=== PATIENT | female | born 1960 | race Caucasian/White ===

== ENCOUNTER 2022-10-26 10:58 | Inpatient (IN) | payer SELFPAY ==
[2022-10-26 12:18] LABS: #Basophils 0.1 thou/uL (0.0-0.2); #Eosinphils 0.1 thou/uL (0.0-0.7); #Lymphocytes 1.3 thou/uL (1.20-3.40); #Monocytes 0.9 thou/uL (0.11-0.59); #Neutrophils 10.6 thou/uL (1.40-6.50); %Basophils 0.6 % (0.0-1.0); %Eosinophils 0.9 % (0.0-10.0); %Lymphocytes 10.2 % (21.0-51.0); %Monocytes 6.9 % (0.0-10.0); %Neutrophils 81.4 % (42.0-75.0); Hemoglobin 14.9 g/dL (12.0-16.0); Mean Corpuscular HGB CONC 34.9 g/dL (32.0-36.0); Mean Corpuscular Hemoglobin 32.2 pg (27.0-31.0); Mean Corpuscular Volume 92.1 fl (78.0-98.0); Mean Platelet Volume 9.4 fL (7.4-10.4); Platelet Count 172 10x3/uL (130-400); RBC Distribution Width 11.9 % (11.5-14.5); Red Blood Cell (RBC) Count 4.63 mill/uL (4.20-5.40); White Blood Cell (WBC) Count 13.1 10x3/uL (4.8-10.8)
[2022-10-26 12:49] LABS: ALT (SGPT) 22 U/L (8-55); AST (SGOT) 22 U/L (5-34); Albumin 4.5 g/dL (3.4-4.8); Alkaline Phosphatase 80 U/L (40-110); Anion Gap 19 mmol/L (10-20); BUN (Urea Nitrogen) 15 mg/dL (9.8-20.1); Bilirubin, Total 0.6 mg/dL (0.2-1.2); Calc. Creatinine Clearance 0 mL/min (70-130); Calcium 9.9 mg/dL (7.8-10.44); Carbon Dioxide 18 mmol/L (23-31); Chloride 104 mmol/L (98-107); Estimated GFR 61; Globulin 3.3 g/dL (2.4-3.5); Glucose 97 mg/dL (80-115); Potassium 3.1 mmol/L (3.5-5.1); Protein, Total 7.8 g/dL (5.8-8.1); Sodium 138 mmol/L (136-145)
[2022-10-26] MEDS ORDERED: Ketamine In 0.9 % NaCl 50 MG/5 ML SYRINGE ONE ×2 (12:53→13:42)
[2022-10-26] MEDS ORDERED: PROPOFOL 0 ML ONE (12:53)
[2022-10-26] MEDS ORDERED: PROPOFOL 20 ML ONE (13:42)
[2022-10-26] MEDS ORDERED: fentaNYL 50 mcg/mL 1 mL Vial ONE (15:02)
[2022-10-26] MEDS ORDERED: Dextrose 50% Abboject 50 ML SYRINGE SLOW IVP PRN (15:50)
[2022-10-26] MEDS ORDERED: hydrALAZINE 20 MG/ML VIAL SLOW IVP PRN (15:50)
[2022-10-26] MEDS ORDERED: Ondansetron PF 4 MG/2 ML Vial IVP PRN (15:50)
[2022-10-26] MEDS ORDERED: TETANUS, DIPHTHERIA TOX,ADULT (TDVAX) 0.5 ML VIAL IM ONE (15:50)
[2022-10-26] MEDS ORDERED: Morphine 2 MG/ML VIAL SLOW IVP PRN (15:50)
[2022-10-26] MEDS ORDERED: Dextrose 5% in Water 1,000 ML IV PRN (15:50)
[2022-10-26] MEDS ORDERED: traMADol HCl 50 MG TAB PO PRN ×2 (15:53)
[2022-10-26] MEDS ORDERED: Ibuprofen 200 MG TAB PO PRN (16:17)
[2022-10-26 17:20] LABS: Phosphorus 2.1 mg/dL (2.3-4.7)
[2022-10-26] MEDS ORDERED: Potassium Phosphate 30 MMOL in Sodium Chloride 0.9% 250 ML 250 ML IVPB SCH (17:30)
[2022-10-26] MEDS: Acetaminophen 500 MG TAB PO SCH ×2 (17:49→18:22)
[2022-10-26 18:26] VITALS: BMI 29.5
[2022-10-26] MEDS: Famotidine 20 MG TAB PO SCH (20:39)
[2022-10-26] MEDS: Cyclobenzaprine 10 MG TAB PO PRN (20:39)
[2022-10-26] MEDS: Gabapentin 100 MG CAP PO SCH (20:39)
[2022-10-26] MEDS: Senokot S 8.6-50 MG TAB PO SCH (20:39)
[2022-10-27] MEDS: Acetaminophen 500 MG TAB PO SCH ×4 (00:52→18:04)
[2022-10-27 08:49] LABS: Anion Gap 13 mmol/L (10-20); BUN (Urea Nitrogen) 15 mg/dL (9.8-20.1); Calc. Creatinine Clearance 68 mL/min (70-130); Calcium 8.6 mg/dL (7.8-10.44); Carbon Dioxide 20 mmol/L (23-31); Chloride 109 mmol/L (98-107); Estimated GFR 59; Glucose 119 mg/dL (80-115); Phosphorus 4.9 mg/dL (2.3-4.7); Potassium 3.4 mmol/L (3.5-5.1); Sodium 139 mmol/L (136-145)
[2022-10-27] MEDS: Gabapentin 100 MG CAP PO SCH ×3 (08:55→21:10)
[2022-10-27] MEDS: Escitalopram Oxalate 10 mg Tablet PO SCH (08:55)
[2022-10-27] MEDS: Senokot S 8.6-50 MG TAB PO SCH ×2 (08:56→21:08)
[2022-10-27] MEDS: Famotidine 20 MG TAB PO SCH ×2 (08:56→21:10)
[2022-10-27] MEDS: Polyethylene Glycol 3350 17 GM Packet PO SCH (08:56)
[2022-10-27] MEDS ORDERED: Potassium Chloride 20 MEQ TAB PO SCH (10:00)
[2022-10-28] MEDS: Acetaminophen 500 MG TAB PO SCH ×4 (00:01→17:37)
[2022-10-28] MEDS: Famotidine 20 MG TAB PO SCH ×2 (09:57→20:38)
[2022-10-28] MEDS: Escitalopram Oxalate 10 mg Tablet PO SCH (09:57)
[2022-10-28] MEDS: Gabapentin 100 MG CAP PO SCH ×3 (09:57→20:38)
[2022-10-28] MEDS: Polyethylene Glycol 3350 17 GM Packet PO SCH (10:01)
[2022-10-28] MEDS: Senokot S 8.6-50 MG TAB PO SCH ×2 (10:02→20:46)
[2022-10-28] MEDS: Cyclobenzaprine 10 MG TAB PO PRN (20:38)
[2022-10-29] MEDS: Acetaminophen 500 MG TAB PO SCH ×3 (01:58→11:47)
[2022-10-29 07:55] VITALS: TEMP 98.1
[2022-10-29] MEDS: Escitalopram Oxalate 10 mg Tablet PO SCH (08:02)
[2022-10-29] MEDS: Famotidine 20 MG TAB PO SCH (08:02)
[2022-10-29] MEDS: Gabapentin 100 MG CAP PO SCH (08:03)
[2022-10-29] MEDS: Polyethylene Glycol 3350 17 GM Packet PO SCH (09:41)
[2022-10-29] MEDS: Senokot S 8.6-50 MG TAB PO SCH (09:41)
[2022-10-29 11:44] VITALS: BP 119/80
== END 2022-10-29 15:20 | disposition home or self-care (01) | DRG 563 ==
LOC: ERS 10:58 → SURG B 15:21 → OBSVTOIN 10-28 15:11
PROVIDERS: ADMIT Student in an Organized Health Care Education/Training Program; ATTEND Student in an Organized Health Care Education/Training Program
PROC: 2W3DX1Z Immobilization of Left Lower Arm using Splint (ICD-10-PCS; principal; 2022-10-28)
PROC: 2W3TX1Z Immobilization of Left Foot using Splint (ICD-10-PCS; 2022-10-28)
DX: S52.572A Other intraarticular fracture of lower end of left radius, initial encounter for closed fracture (principal); S92.322A Displaced fracture of second metatarsal bone, left foot, initial encounter for closed fracture; S92.342A Displaced fracture of fourth metatarsal bone, left foot, initial encounter for closed fracture; W18.30XA Fall on same level, unspecified, initial encounter; Z60.2 Problems related to living alone; Z88.1 Allergy status to other antibiotic agents; F41.9 Anxiety disorder, unspecified; I10 Essential (primary) hypertension; Z79.899 Other long term (current) drug therapy; E87.6 Hypokalemia; Y92.002 Bathroom of unspecified non-institutional (private) residence as the place of occurrence of the external cause
CPT/HCPCS: 25605; 36415; 80048; 80053; 83735; 84100; 85025; 93005; 96365; 96366; 96374; 99152; 99153; G0378; G0390; J1650; J2704; J3010; J3490; J7050